=== PATIENT | female | born 1980 | race Caucasian/White ===

== ENCOUNTER 2025-01-28 10:00 | Inpatient (IN) | payer SELFPAY ==
[~2025-01-28] VITALS: Ht 162.6 cm; Wt 65.8 kg
[2025-01-28] MEDS: MORPHINE SULFATE 4 MG/ML INJ (FOR IV/IM USE) IV STA (10:41)
[2025-01-28] MEDS: SODIUM CHLORIDE 0.9% 1,000 ML IV ONE (10:41)
[2025-01-28] MEDS: ONDANSETRON HCL 4MG/2ML INJ IV STA (10:41)
[2025-01-28 10:47] LABS: BASOPHILS % 0.3 % (0.0-2.0); EOSINOPHILS % 0.6 % (0.0-5.0); HEMATOCRIT. 32.2 % (36.0-48.0); HEMOGLOBIN. 10.5 g/dL (12.0-16.0); LYMPHOCYTES % 30.6 % (20.0-50.0); MEAN CORPUSCULAR HEMOGLOBIN 27.7 pg (28.0-32.0); MEAN CORPUSCULAR HGB CONC 32.5 g/dL (31.0-37.0); MEAN CORPUSCULAR VOLUME 85.4 fL (81.0-99.0); MEAN PLATELET VOLUME 7.6 fl (7.4-10.4); MONOCYTES % 8.2 % (2.0-8.0); NEUTROPHILS % 60.3 % (40.0-76.0); PLATELET 209 x1000/uL (130-400); RED BLOOD CELL COUNT 3.77 mill/uL (4.2-5.4); RED CELL DISTRIBUTION WIDTH 16.7 % (11.6-14.6); WHITE BLOOD COUNT 3.1 x1000/uL (4.5-11.0)
[2025-01-28 10:54] LABS: CHLORIDE 102 mEq/L (98-107); POTASSIUM 3.5 mEq/L (3.5-5.1); SODIUM 135 mEq/L (136-145)
[2025-01-28 10:55] LABS: CARBON DIOXIDE 26 mEq/L (21-32)
[2025-01-28 10:56] LABS: CALCIUM 8.3 mg/dL (8.7-10.4)
[2025-01-28 10:57] LABS: HCG SCREEN NEGATIVE
[2025-01-28 11:00] LABS: CREATININE 0.7 mg/dL (0.6-1.0); GLUCOSE 97 mg/dL (70-105)
[2025-01-28 11:01] LABS: UREA NITROGEN BLOOD 11 mg/dL (9-23)
[2025-01-28 11:28] LABS: TROPONIN I HIGH SENSITIVITY < 4 ng/L (3.0-34)
[2025-01-28] MEDS ORDERED: GUAIFENESIN 200MG/10ML SUGAR FREE UDC PO PRN (13:00)
[2025-01-28] MEDS ORDERED: ACETAMINOPHEN 325MG TABLET PO PRN ×2 (13:00)
[2025-01-28] MEDS ORDERED: IPRATROPIUM/ALBUTEROL 0.5-3(2.5)MG/3ML NEB HHN PRN (13:00)
[2025-01-28] MEDS ORDERED: CLONIDINE 0.1MG TABLET PO PRN (13:00)
[2025-01-28] MEDS: ONDANSETRON HCL 4MG/2ML INJ IV ONE (13:17)
[2025-01-28] MEDS ORDERED: DEXTROSE 50% WATER 50ML SYRINGE IV PRN ×2 (13:30→20:30)
[2025-01-28 14:59] LABS: PHOSPHORUS 3.9 mg/dL (2.5-4.9)
[2025-01-28 16:00] VITALS: BP 118/75; PULSE 66; RESP 18; TEMP 36.3; O2SAT 97
[2025-01-28] MEDS: ONDANSETRON HCL 4MG/2ML INJ IV PRN (16:19)
[2025-01-28] MEDS: SODIUM CHLORIDE 0.9% 1,000 ML IV SCH (16:23)
[2025-01-28 16:44] VITALS: BP 118/75; PULSE 76; RESP 12; TEMP 36.4
[2025-01-28] MEDS: BLOOD SUGAR DIAGNOSTIC STRIP TEST SCH ×2 (17:51→20:31)
[2025-01-28 18:08] LABS: CREATINE KINASE 29 IU/L (34-145)
[2025-01-28] MEDS: DIPHENHYDRAMINE 50MG/ML VIAL IV PRN (18:36)
[2025-01-28 20:00] VITALS: BP 123/83; PULSE 96; RESP 18; TEMP 36.6; O2SAT 99
[2025-01-28] MEDS ORDERED: DULO20CA18 PO (20:06)
[2025-01-28] MEDS ORDERED: FAMO20TA8 PO (20:08)
[2025-01-28] MEDS ORDERED: ONDA8TAB59 PO (20:08)
[2025-01-28] MEDS ORDERED: LORA10TA7 PO (20:09)
[2025-01-28] MEDS: DIPHENHYDRAMINE 50MG/ML VIAL IV NR (20:43)
[2025-01-28] MEDS: LORAZEPAM 0.5MG TABLET PO PRN (20:55)
[2025-01-28] MEDS: INSULIN LISPRO 100 UNITS/ML SUBCUT SCH (20:56)
[2025-01-29] VITALS: BP 111/75; PULSE 92; RESP 19; TEMP 36.2; O2SAT 99
[2025-01-29 00:44] LABS: CREATINE KINASE 28 IU/L (34-145)
[2025-01-29 04:00] VITALS: BP 107/91; PULSE 91; RESP 18; TEMP 36.7; O2SAT 99
[2025-01-29] MEDS: DIPHENHYDRAMINE 50MG/ML VIAL IV PRN (04:38)
[2025-01-29] MEDS: HYDROCORTISONE SOD SUCCINATE 250 MG/2 ML VIAL IV NR (04:38)
[2025-01-29 08:00] VITALS: BP 116/81; PULSE 95; RESP 20; TEMP 36.4; O2SAT 98
[2025-01-29] MEDS: DOCUSATE SODIUM 100MG CAPSULE PO PRN (11:03)
[2025-01-29 12:00] VITALS: BP 110/64; PULSE 103; RESP 20; TEMP 36.5; O2SAT 99
[2025-01-29 16:00] VITALS: BP 128/74; PULSE 78; RESP 20; TEMP 35.6; O2SAT 99
[2025-01-29 20:00] VITALS: BP 114/62; PULSE 85; RESP 18; TEMP 36.4; O2SAT 99
[2025-01-30 04:00] VITALS: BP 101/56; PULSE 89; RESP 20; TEMP 36.4; O2SAT 98
[2025-01-30 08:00] VITALS: BP 124/73; PULSE 84; RESP 20; TEMP 36.4; O2SAT 99
[2025-01-30] MEDS: FAMOTIDINE 20MG TABLET PO SCH (08:51)
[2025-01-30] MEDS ORDERED: FAMOTIDINE 20MG TABLET PO SCH (09:00)
[2025-01-30 12:00] VITALS: BP_SYST 120; BP_SYST 124; BP_DIAS 72; BP_DIAS 73; PULSE 66; PULSE 84; RESP 20; TEMP 36.1; TEMP 36.4; O2SAT 99
[2025-01-30 15:05] VITALS: BP 120/72; PULSE 62; TEMP 97.6; O2SAT 99
== END 2025-01-30 17:58 | disposition home or self-care (01) | DRG 204 ==
LOC: ER 10:00 → EDBEDREQ 11:33 → EDBEDREQTM 11:33 → 8WST 15:59
PROVIDERS: ADMIT Hospitalist; ATTEND Hospitalist
DX: I95.1 Orthostatic hypotension (principal); C50.912 Malignant neoplasm of unspecified site of left female breast; D63.8 Anemia in other chronic diseases classified elsewhere; E86.0 Dehydration; Z17.421 Hormone receptor negative with human epidermal growth factor receptor 2 negative status
CPT/HCPCS: 36415; 71045; 74176; 80048; 82550; 82962; 83036; 83735; 83880; 84100; 84484; 84703; 85025; 93005; 93970; 99285; A4606; J1200; J1720; J1815; J2270; J2405; J7030